=== PATIENT | male | born 1970 | race Caucasian/White ===

== ENCOUNTER 2017-10-30 12:15 | Emergency (ER) | payer SELFPAY ==
[2017-10-30 13:19] LABS: BASOPHILS # (AUTO) 0.1 10^3/uL (0.0-0.1); BASOPHILS % (AUTO) 0.9 %; EOSINOPHILS # (AUTO) 0.1 10^3/uL (0.0-0.7); EOSINOPHILS % (AUTO) 0.6 %; HGB - HEMOGLOBIN 16.1 g/dL (14.0-18.0); LYMPHOCYTES # (AUTO) 2.1 10^3/uL (1.5-3.5); LYMPHOCYTES % (AUTO) 23.7 %; MEAN CORPUSCULAR HEMOGLOBIN 31.4 pg (27.0-31.0); MEAN CORPUSCULAR HGB CONC 34.6 g/dL (32.0-36.0); MEAN CORPUSCULAR VOLUME 90.7 fL (80.0-94.0); MEAN PLATELET VOLUME 8.9 fL (7.4-11.4); MONOCYTES # (AUTO) 0.8 10^3/uL (0.0-1.0); MONOCYTES % (AUTO) 9.1 %; NEUTROPHILS # (AUTO) 5.8 10^3/uL (1.5-6.6); NEUTROPHILS % (AUTO) 65.7 %; PLT - PLATELET COUNT 171 10^3/uL (130-450); RED BLOOD COUNT 5.13 10^6/uL (4.70-6.10); WHITE BLOOD COUNT 8.8 x10^3/uL (4.8-10.8)
[2017-10-30 13:27] LABS: ALBUMIN 4.5 g/dL (3.2-5.5); ALBUMIN/GLOBULIN RATIO 1.1 (1.0-2.2); BILIRUBIN,TOTAL 0.7 mg/dL (0.2-1.0); CALCIUM 9.8 mg/dL (8.5-10.3); CREATININE 0.7 mg/dL (0.6-1.2); TOTAL PROTEIN 8.5 g/dL (6.7-8.2)
[2017-10-30 14:06] LABS: GLUCOSE, URINE (UA) NEGATIVE (NEGATIVE); KETONES,URINE (UA) NEGATIVE (NEGATIVE); LEUKOCYTE ESTERASE, URINE NEGATIVE (NEGATIVE); NITRITE,URINE NEGATIVE (NEGATIVE); OCCULT BLOOD,URINE NEGATIVE (NEGATIVE); PROTEIN,URINE NEGATIVE (NEGATIVE); UROBILINOGEN,URINE 0.2 (NORMAL) E.U./dL (NORMAL)
[2017-10-30 14:13] LABS: CLARITY,URINE CLEAR (CLEAR)
[2017-10-30 14:14] LABS: BILIRUBIN,URINE NEGATIVE (NEGATIVE); ICTOTEST,URINE NEGATIVE
[2017-10-30] MEDS ORDERED: LOPERAMIDE 2 MG CAPSULE PO STA (14:35)
[2017-10-30] MEDS ORDERED: ONDANSETRON ODT 4 MG TABLET TL STA (14:35)
--- NOTE | 2017-10-30 14:38 | ED Physician Documentation ---
History of Present Illness - Stated complaint Stated Complaint: ABD PX - Chief complaint Chief Complaint: Abd Pain - History obtained from History obtained from: Patient - Additonal information Additional information: 47-year-old male presents the emergency department with complaints of 3 days of Decreasing diarrhea abdominal cramping. The patient reports generalized lower abdominal cramping before the episodes of diarrhea. Initially the diarrhea was a yellowish color and today the diarrhea has decreased and his stools are more formed and brownish. The patient denies any focal area of abdominal pain. The patient denies fevers or chills, no recent antibiotic usage, no recent travel, no recent hospitalizations or camping or drinking of her water. Symptoms are improving. Symptoms are described as mild. The patient reports irritation to his rectum from the significant amounts of diarrhea. No other associated symptoms Review of Systems Constitutional: reports: Fatigue. denies: Fever, Chills Eyes: denies: Discharge Ears: denies: Ear pain Nose: denies: Congestion Cardiac: denies: Palpitations Respiratory: denies: Cough GI: reports: Abdominal Pain, Diarrhea. denies: Vomiting : denies: Dysuria Skin: denies: Laceration (s) Musculoskeletal: denies: Back pain Neurologic: denies: Generalized weakness PD PAST MEDICAL HISTORY - Past Medical History Past Medical History: Yes GI: Hepatitis - Past Surgical History Past Surgical History: Yes General: Cholecystectomy - Present Medications Home Medications: Ambulatory Orders Medication Instructions Recorded Confirmed HYDROcod/ACETAM 5/325 [[place] 5/325] 1 - 2 ea PO Q6H PRN #20 tablet 07/14/15 Ondansetron Odt [Zofran] 4 mg TL Q6H PRN #20 tablet 10/30/17 - Allergies Allergies/Adverse Reactions: Allergies Allergy/AdvReac Type Severity Reaction Status Date / Time codeine Allergy Nausea Verified 10/30/17 12:28 - Social History Does the pt smoke?: Yes Smoking Status: Current every day smoker Does the pt drink ETOH?: No Does the pt have substance abuse?: Yes Substance Use and Type: Marijuana - Immunizations Immunizations are current?: Yes - POLST Patient has POLST: No PD ED PE NORMAL - General General: Alert and oriented X 3, No acute distress - HEENT HEENT: Atraumatic, PERRL, EOMI - Cardiac Cardiac: RRR, Strong equal pulses - Respiratory Respiratory: No respiratory distress - Abdomen Abdomen: Soft, Non tender, Non distended - Derm Derm: Normal color - Extremities Extremities: No deformity, Normal ROM s pain, No edema - Neuro Neuro: Alert and oriented X 3, Normal speech - Psych Psych: Normal affect Results - Vitals Vitals: Vital Signs - 24 hr 10/30/17 12:23 Temperature 36.4 C L Heart Rate 84 Respiratory 16 Rate Blood Pressure 99/71 O2 Saturation 97 Oxygen O2 Source Room air - Labs Labs: Laboratory Tests 10/30/17 10/30/17 10/30/17 13:07 13:07 14:00 WBC 8.8 RBC 5.13 Hgb 16.1 Hct 46.5 MCV 90.7 MCH 31.4 H MCHC 34.6 RDW 13.0 Plt Count 171 MPV 8.9 Neut # (Auto) 5.8 Lymph # (Auto) 2.1 [place] # (Auto) 0.8 Eos # (Auto) 0.1 Baso # (Auto) 0.1 Absolute Nucleated RBC 0.00 Nucleated RBC % 0.1 Sodium 137 Potassium 3.7 Chloride 100 L Carbon Dioxide 30 Anion Gap 7.0 BUN 10 Creatinine 0.7 Estimated GFR (MDRD) 122 Glucose 113 H Calcium 9.8 Total Bilirubin 0.7 AST 29 ALT 26 Alkaline Phosphatase 62 Total Protein 8.5 H Albumin 4.5 Globulin 4.0 Albumin/Globulin Ratio 1.1 Lipase 27 Urine Color DARK YELLOW Urine Clarity CLEAR Urine pH 6.0 Ur Specific [place] >=1.030 H Urine Protein NEGATIVE Urine Glucose (UA) NEGATIVE Urine Ketones NEGATIVE Urine Occult Blood NEGATIVE Urine Nitrite NEGATIVE Urine Bilirubin NEGATIVE Urine Urobilinogen 0.2 (NORMAL) Ur Leukocyte Esterase NEGATIVE Ur Microscopic Review NOT INDICATED Urine Culture Comments NOT INDICATED PD MEDICAL DECISION MAKING - ED course ED course: The patient's symptoms seem to represent a viral etiology. The patient reports improving symptoms and has no focal area of abdominal pain. Appendicitis is a possibility but I think it is low probability at this point given his improving symptoms, no tenderness on examination and normal white blood cell count. So, I do not think a CT scan is warranted at this time. I discussed with the patient the possibility of early appendicitis and various other acute intra-abdominal processes. I advised that he should return to the emergency department immediately for reevaluation at any point for worsening symptoms or any concerns. - Sepsis Event Vital Signs: Vital Signs - 24 hr 10/30/17 12:23 Temperature 36.4 C L Heart Rate 84 Respiratory 16 Rate Blood Pressure 99/71 O2 Saturation 97 Oxygen O2 Source Room air Departure - Departure Disposition: 01 Home, Self Care Clinical Impression: Abdominal cramps Diarrhea Qualifiers: Diarrhea type: unspecified type Qualified Code(s): R19.7 - Diarrhea, unspecified Condition: Good Instructions: ED Abdominal Pain Appendx Poss, ED Diarrhea Viral Prescriptions: Ondansetron Odt [Zofran] 4 mg TL Q6H PRN #20 tablet PRN Reason: Nausea / Vomiting Comments: Please follow-up with primary care for recheck. Please return back to the emergency department immediately for any worsening or any concerns.
[2017-10-30 14:50] VITALS: BP 113/84
== END 2017-10-30 14:49 | disposition home or self-care (01) ==
LOC: ED 12:15
DX: R10.9 Unspecified abdominal pain (principal); R19.7 Diarrhea, unspecified; K75.9 Inflammatory liver disease, unspecified; F17.200 Nicotine dependence, unspecified, uncomplicated
CPT/HCPCS: 36415; 80053; 81003; 83690; 85025; 99283; A9270; Q0162; 81001; 87086